=== PATIENT | male | born 1990 | race Caucasian/White ===

== ENCOUNTER 2017-04-23 07:18 | Emergency (ER) | payer OTHER ==
[2017-04-23 07:20] VITALS: BP 133/66; PULSE 108; RESP 18; O2SAT 99
--- NOTE | 2017-04-23 07:26 | ED.REPORT ---
HPI-Allergic Reaction Date of Service Apr 23, 2017 ED Provider: Dr. Baig The pt is a 26 y/o male, visiting from [place], with a hx of known nut allergy who presents to the ED complaining of an allergic reaction after accidently eating a granola bar with nuts 2 hours ago. He reports diffuse hives, facial flushing, tingling around his lips,and mild throat and chest tightness. He denies difficulty breathing. He has never experienced anaphylaxis during an allergic reaction. The pt made himself vomit hoping that will improve his sx. He reports mild relief in the ED. Nursing Notes Stated Complaint: ALLERGIC REACTION Chief Complaint: Allergic Reaction Nursing Notes Reviewed: Yes Scheduled Prednisone (PredniSONE) 20 Mg Tablet 20 MG PO DAILY General Time Seen by MD: 07:26 Chief Complaint Allergic reaction Hx Obtained From: Patient Arrived By: Walk-in Onset Occurred: 1 - 4 hours ago Symptom Duration: Since onset Progression Since Onset: Gradually improving Severity: Current: No pain currently Severity: Maximum: No pain Recent Healthcare: No recent doctor visit Similar Sx Previous: Yes Past Medical History Past Medical History Known nut allergy Asthma as a child Past Surgical History none reported Smoking History Never Smoker Ambulatory Status Independent Review of Systems Reports: facial flushing Reports; tingling sensation around his lips Reports: mild throat and chest tightness Respiratory: Denies: Shortness of breath Allergy / Immune: Reports: Allergic reaction, Hives Complete sys rev & neg: except as marked. Physical Exam Initial Vital Signs Vital Signs (First) Date Time Temp Pulse Resp B/P Pulse Ox O2 Delivery O2 Flow Rate FiO2 04/23/17 07:20 37.0 108 18 133/66 99 Room Air Initial VS: Reviewed Head / Eyes: Atraumatic, Normocephalic Neck: Supple, Non-tender, Full range of motion Abdomen / GI: No guarding, No distention Extremities: Vascular intact, Neuro intact, No swelling, No tenderness Neurologic: Alert, Oriented, Nonfocal General/Constitutional: Awake, Alert, No acute distress, Well appearing, Cooperative Respiratory / Chest: Atraumatic, Breath sounds NL, Breath sounds = bilat, No respiratory distress, No rales, No rhonchi, No wheezing, No stridor Cardiovascular: Heart rate NL, Regular rhythm, Heart sounds NL, No gallop, No murmurs, No rubs Skin: Atraumatic, No rash, Warm, Dry Redness and flushing of the skin. ENT: Atraumatic, Airway patent, Mucous membranes moist, Pharynx NL, No facial swelling Re-Eval/Medical Decision Med Decision/Clinical Course Allergic reaction without signs of anaphylaxis due to probable not ingestion from a granola bar. Observed in the ER without worsening symptoms. Symptoms have actually improved. Return and follow-up precautions given. Prednisone prescribed. Patient already has 2 epi-pens. Re-Evaluation/Progress #1: Time of Eval: 07:32 Re-Evaluation/Progress Note: Discussed the plan to observe the pt. He understands and agrees with the plan. All questions answered. Re-Evaluation/Progress #2: Time of Eval: 08:52 Re-Evaluation/Progress Note: Rechecked pt. Discussed diagnosis and plan to discharge. Pt understands and agrees with the plan. F/U instruction and RTER warning given. All questions addressed Counseled Regarding: Diagnosis, Need for follow-up, When/why to return to ED Discharge & Departure Primary Impression: Nut allergy Additional Impression: Allergic reaction Encounter type: initial encounter Qualified Code: T78.40XA - Allergy, unspecified, initial encounter Disposition: Home Discharge Condition All VS Reviewed: Yes Condition: Stable Patient Instructions: Food Allergy (ED) Additional Instructions: Take Benadryl and prednisone for your allergic reaction. Go to the closest emergency department as needed for worsening symptoms. Scribe Attestation Portions of this note were transcribed by Yvan Antoine. I,, personally performed the history,physical exam and medical decision-making;I reviewed and confirmed the accuracy of the information in the transcribed note. Signed by Judith Sofia. 04/23/17 Simone Bagi DO Apr 23, 2017 07:26 Yvan Antoine Apr 23, 2017 07:40
[2017-04-23] MEDS ORDERED: 0.9% Sodium Chloride 1,000 ML IV ONE (07:40)
[2017-04-23] MEDS ORDERED: MethylprednisoLONE Sodium Succinate 62.5 mg/mL 2 mL Inj IVPUSH ONE (07:40)
[2017-04-23] MEDS ORDERED: Famotidine 10 mg/mL 2 mL Inj IVPUSH ONE (07:40)
[2017-04-23 08:00] VITALS: BP 138/62; PULSE 94; RESP 15; O2SAT 100
[2017-04-23] MEDS ORDERED: 0.9% Sodium Chloride 50 ML ONE (08:15)
[2017-04-23 08:30] VITALS: BP 134/71; PULSE 83; RESP 15; O2SAT 100
[2017-04-23 09:00] VITALS: BP 138/62; PULSE 81; RESP 15; O2SAT 100
[2017-04-23 09:07] VITALS: BP 136/66; PULSE 72; RESP 16; O2SAT 100
[2017-04-23] MEDS ORDERED: PRE20 PO (09:09)
== END 2017-04-23 09:18 | disposition home or self-care (01) ==
LOC: SED 07:18
DX: L50.9 Urticaria, unspecified (principal); R07.89 Other chest pain; R20.2 Paresthesia of skin; T78.05XA Anaphylactic reaction due to tree nuts and seeds, initial encounter; X58.XXXA Exposure to other specified factors, initial encounter; Y93.89 Activity, other specified; Y99.8 Other external cause status; Y92.89 Other specified places as the place of occurrence of the external cause; Z91.018 Allergy to other foods
CPT/HCPCS: 96361; 96374; 96375; 99284; J1200; J2930; J7030